=== PATIENT | female | born 2000 | race Two or more races ===

== ENCOUNTER 2024-02-27 15:32 | Outpatient (CLI) | payer OTHER | END 2024-02-27 15:33 | disposition home or self-care (01) | LOC: PRENATAL 15:32 | PROVIDERS: ATTEND Obstetrics & Gynecology Maternal & Fetal Medicine | DX: O26.843 Uterine size-date discrepancy, third trimester (principal); O36.8130 Decreased fetal movements, third trimester, not applicable or unspecified; Z3A.33 33 weeks gestation of pregnancy ==